=== PATIENT | male | born 1935 | race Caucasian/White ===

== ENCOUNTER 2022-11-16 12:48 | Outpatient (CLI) | payer MEDICARE, OTHER, SELFPAY | END 2022-11-16 12:49 | disposition home or self-care (01) | LOC: RAD 12:50 | PROVIDERS: PCP Internal Medicine; Visit Provider Internal Medicine | DX: I48.91 Unspecified atrial fibrillation (principal); I51.7 Cardiomegaly; I07.1 Rheumatic tricuspid insufficiency | CPT/HCPCS: 93306 ==

== ENCOUNTER 2022-12-21 08:43 | Outpatient (CLI) | payer MEDICARE, OTHER, SELFPAY ==
[2022-12-21 09:21] LABS: Prothrombin Time 28.3 Seconds
== END 2022-12-21 08:44 | disposition home or self-care (01) ==
PROVIDERS: PCP Internal Medicine; Visit Provider Internal Medicine
DX: I48.91 Unspecified atrial fibrillation (principal)
CPT/HCPCS: 85610

== ENCOUNTER 2023-12-01 07:48 | Outpatient (CLI) | payer MEDICARE, OTHER, SELFPAY ==
--- OUTSIDE RECORDS SUMMARY | 2023-12-01 07:50 | XMS_ITS | Clinical Summary ---
Author Name Unknown Organization [facility] Address [place], [place] [address] Care Team Providers Care Chain Repairer Name Role Phone Anurag Hewitt MD Primary Care Provider Allergies No known active allergies Medications Medication Sig Dispensed Refills Start Date End Date Status warfarin (COUMADIN) 2.5 mg tablet Take 2.5 mg by mouth once daily. 0 Active amLODIPine (NORVASC) 5 mg tabletIndications: HTN (hypertension) Take 1 Tablet (5 mg) by mouth once daily. 90 Tablet 3 11/10/2023 Active losartan (COZAAR) 50 mg tabletIndications: HTN (hypertension) Take 1 Tablet (50 mg) by mouth once daily. 90 Tablet 3 11/10/2023 Active Graduated Compression StockingsIndicatio ns:Edema, unspecified type For personal use. Length: calf length 1 Packet 0 11/27/2023 Active amLODIPine (NORVASC) 5 mg tabletIndications: HTN (hypertension) Take 1 Tablet (5 mg) by mouth once daily. 90 Tablet 3 11/18/2022 11/10/2023 Discontinued (Reorder (E-cancel not sent)) losartan (COZAAR) 50 mg tabletIndications: HTN (hypertension) Take 1 Tablet (50 mg) by mouth once daily. 0 11/18/2022 11/10/2023 Discontinued (Reorder (E-cancel not sent)) Encounters Date Type Department Care Team Description [facility] [address] [place] [address] Gallo Melara MD Other 11/10/2023 9:00 AM BUSINESS OFFICE COORDINATOR Telemedicine [facility] [place] [address] [place] [address] Gallo Melara MD from Last 3 Months Social History Tobacco Use Types Packs/Day Years Used Date Smoking Tobacco: Never Assessed Social Connections Answer Date Recorded Frequency of Communication with Friends and Fami ly Not on file 11/04/2022 Sex and Gender Information Value Date Recorded Sex Assigned at Not on file Gender Identity Not on file Sexual Orientation Not on file Plan of Treatment Upcoming Encounters Date Type Department Care Team (Late st Contact Info) Description 12/01/2023 8:00 AM BUSINESS OFFICE COORDINATOR Orders Only [facility] [place] [address] [place] [address] Health Maintenance Due Date Last Done Comments Pneumococcal series for age 65+ (1 of 2 - PCV) 1942 Tdap 1947 Depression screening for age 12+ 1948 BMI (ht and wt on same day) for age 18+ 1954 Tetanus booster 1956 Zoster (shingles) series for age 50+ (1 of 2) 1986 Medicare Wellness for age 65+ 2001 Influenza for age 65+ 06/30/2023 COVID-19 vaccine series Completed 08/19/20, 08/13/2022, 03/10/2022, Additional history exists Care Teams Chain Repairer Relationship Specialty Start Date End Date Anurag Hewitt MD [address] [place], [place] [id number] PCP - General Internal Medicine 10/28/22
== END 2023-12-01 07:49 | disposition home or self-care (01) ==
LOC: RAD 07:49
PROVIDERS: PCP Internal Medicine; Visit Provider Internal Medicine
DX: Z95.2 Presence of prosthetic heart valve (principal); I51.7 Cardiomegaly; I34.0 Nonrheumatic mitral (valve) insufficiency; I07.1 Rheumatic tricuspid insufficiency; Z98.890 Other specified postprocedural states
CPT/HCPCS: 93306

== ENCOUNTER 2025-01-20 09:49 | Outpatient (CLI) | payer MEDICARE, OTHER, SELFPAY | END 2025-01-20 09:50 | disposition home or self-care (01) | LOC: RAD 09:51 | PROVIDERS: PCP Internal Medicine; Visit Provider Internal Medicine Cardiovascular Disease | DX: I48.91 Unspecified atrial fibrillation (principal); I51.7 Cardiomegaly; I34.0 Nonrheumatic mitral (valve) insufficiency; I07.1 Rheumatic tricuspid insufficiency; R00.1 Bradycardia, unspecified | CPT/HCPCS: 93306 ==

== ENCOUNTER 2025-10-14 15:49 | Outpatient (CLI) | payer MEDICARE, OTHER, SELFPAY | END 2025-10-14 15:50 | disposition home or self-care (01) | LOC: NFLDREF 15:52 | PROVIDERS: PCP Internal Medicine; Visit Provider Internal Medicine | DX: G45.4 Transient global amnesia (principal) | CPT/HCPCS: 80053; 87086 ==

== ENCOUNTER 2025-10-15 15:46 | Outpatient (CLI) | payer MEDICARE, OTHER, SELFPAY ==
--- NOTE | 2025-10-15 16:00 | CRLHL7_ITS ---
For Patients: As a result of the Century Cures Act, medical imaging exams and procedure reports are released immediately into your electronic medical record. You may view this report before your referring provider. If you have questions, please contact your health care provider. INDICATION: TRANSIENT GLOBAL AMNESIA COMPARISON: none TECHNIQUE: A CT volumetric acquisition was performed of the brain without IV contrast. Please note that all CT scans at this facility use dose modulation, iterative reconstruction, and/or weight-based dosing when appropriate to reduce radiation dose to as low as reasonably achievable. FINDINGS: Moderate generalized cortical atrophy. No hydrocephalus or midline shift. No intracranial mass. Normal sinclair-white differentiation. No hemorrhage. Vascular calcifications. Sinuses are clear. IMPRESSION: Moderate generalized cortical atrophy. Please note that all CT scans at this facility use dose modulation, iterative reconstruction, and/or weight-based dosing when appropriate to reduce radiation dose to as low as reasonably achievable. Dictated by Arash Espinal MD @ 10/16/2025 10:37:19 AM (Electronically Signed)
== END 2025-10-15 15:47 | disposition home or self-care (01) ==
LOC: CT 15:47
PROVIDERS: PCP Internal Medicine; Visit Provider Internal Medicine
DX: G45.4 Transient global amnesia (principal); G31.9 Degenerative disease of nervous system, unspecified
CPT/HCPCS: 70450